=== PATIENT | male | born 1975 | race Caucasian/White ===

== ENCOUNTER 2022-08-12 09:24 | Emergency (ER) | payer OTHER ==
[~2022-08-12] VITALS: Ht 177.8 cm; Wt 81.5 kg
[2022-08-12] MEDS ORDERED: VITMTA PO (09:48)
[2022-08-12] MEDS ORDERED: B-12100010 PO (09:48)
[2022-08-12] MEDS ORDERED: ACETAMINOPHEN TAB 650MG DOSE (2X325MG) PO ONE (11:10)
[2022-08-12] MEDS ORDERED: MELO10CA2 PO (11:23)
[2022-08-12] MEDS ORDERED: MELOXICAM (MOBIC) 7.5 MG TAB PO ONE (11:35)
[2022-08-12 11:47] VITALS: BP 129/61
[2022-08-13] MEDS ORDERED: MELOXICAM (MOBIC) 7.5 MG TAB PO SCH (09:00)
== END 2022-08-12 11:48 | disposition home or self-care (01) ==
LOC: M ED 09:24
DX: M65.272 Calcific tendinitis, left ankle and foot (principal); M72.2 Plantar fascial fibromatosis; Z79.810 Long term (current) use of selective estrogen receptor modulators (SERMs); Z79.899 Other long term (current) drug therapy